=== PATIENT | male | born 1975 | race Two or more races ===

== ENCOUNTER → 2025-01-24 | Outpatient (CLI) | payer MEDICAID, SELFPAY ==
--- NOTE | 2025-01-24 17:00 | XR_ITS ---
Examination: MRI brain without intravenous contrast. Date and time of exam: January 24, 2025, 1651 hours INDICATIONS: Headaches beginning August 2024 including stiff neck Technique: Multiple axial and sagittal images of the brain obtained. Siemens high-resolution 1.5 Jyoti short bore scanners utilized. Sagittal sections, T1-weighted, TR 500, TE 14, are performed. Axial sections proton-density and T2-weighted have been obtained. Inversion recovery axial images, TR 9, 260, TE 111, TI 2500. Diffusion weighted images, axial sections, TR 4800, TE 128, B value 1000 Axial sections, ADC map, TR 4800, TE 128 Findings: Enlargement of the sella turcica is not present. The optic chiasm and infundibular are not remarkable. Prepontine and interpeduncular cisterns are not enlarged. There is no localized enlargement of the medulla or christiano. Fourth ventricle and cerebellar tonsils appear normal in position. No subacute area of hemorrhage density is seen. Mass in the cerebellopontine angle region is not evident. Globes symmetrical. Orbital musculature including medial lateral rectus muscles do not exhibit abnormality. Diffusion-weighted images demonstrate no focus of restricted diffusion. Increased white matter signal scattered punctate foci increased signal in the white matter, right frontal white matter FLAIR image 15, left frontal white matter FLAIR image 16 and 19 Prominent chronic ethmoid sinusitis Mass effect upon the ventricular system is not identified. Impression: Negative for acute hemorrhage mass effect or midline shift. No acute infarct Scattered punctate foci increased signal in the white matter, demyelinating disease pattern Significant chronic ethmoid sinusitis
== END | disposition home or self-care (01) ==
PROVIDERS: PCP Registered Nurse Community Health; Referring Provider Registered Nurse Community Health; Visit Provider Registered Nurse Community Health
DX: R90.82 White matter disease, unspecified (principal); J32.2 Chronic ethmoidal sinusitis
CPT/HCPCS: 70551